=== PATIENT | female | born 1990 | race Caucasian/White ===

== ENCOUNTER → 2017-11-02 17:49 | Observation (INO) ==
[2017-11-02 16:43] LABS: Bilirubin,Urine Negative (Negative); Blood,Urine Negative (Negative); Clarity,Urine Cloudy (Clear); Color,Urine Yellow (Yellow); Glucose,Urine (UA) Normal (Normal); Ketones,Urine Negative (Negative); Leukocyte Esterase,Urine Negative (Negative); Nitrite,Urine Negative (Negative); Protein,Urine Negative (Neg-Trace); Specific Gravity,Urine 1.015 (1.010-1.025); Urobilinogen,Urine Normal (Normal)
[2017-11-02 16:44] LABS: Hyaline Casts,Urine None Seen per lpf (None-Few); RBC,Urine 0-3 per hpf (0-3); Squamous Epithelial Cell,Urine Many per lpf (None-Few)
[2017-11-02 17:01] LABS: Bacteria,Urine Moderate per hpf (None-Few)
[2017-11-02 17:06] LABS: Amphetamine Screen,Urine Negative ng/mL (Cutoff=1000); Barbiturate Screen,Urine Negative ng/mL (Cutoff=200); Benzodiazepines Screen,Urine Negative ng/mL (Cutoff=200); Cannabinoid Screen,Urine Negative ng/mL (Cutoff = 50); Cocaine Screen,Urine Negative ng/mL (Cutoff= 300); Opiate Screen,Urine Negative ng/mL (Cutoff=300); Phencyclidine Screen,Urine Negative ng/mL (Cutoff=25)
--- NOTE | 2017-11-02 17:45 | OB/GYN Progress Note ---
Date of Encounter: 11/02/17 Time of Encounter: 17:36 - Assessment and Plan (1) 31 weeks gestation of Current Visit: Yes Status: Acute Continue PNC as scheduled labor precautions given Discharge home (2) Left sciatic nerve pain Current Visit: Yes Status: Acute Apply heat as needed for 20 minutes at a time Tennis ball maneuvers discussed. Subjective - Subjective Principal diagnosis: Sciatic nerve pain during Interval history: Ms. Greene is a 27-year-old at 31 weeks gestation who presents with c/o sudden onset left-sided pain in her gluteal area radiating to her groin. She also c/o feeling vaginal pressure and tightening. She endorses good fm and denies lof, vb. She states she sees Dr. Jean for PNC and has not had any complications this . Antepartum ROS: new complaints, movement normal, no loss of fluid, no vaginal bleeding, no contractions Objective - Vital Signs Vital Signs: Intake and Output 11/02/17 11/02/17 11/02/17 07:59 15:59 23:59 Other: Weight 69.4 kg Patient Weight 11/02/17 23:59 Weight 69.4 kg - Exam FHR: category 1 FHR comments: Baseline 130 Moderate variability Accelerations 15x15 No decelerations FHR Category I No toco activity Auscultation: bilateral: normal Abdomen: Present: normal appearance, rigidity, soft, gravid Uterus: Present: normal, firm - Labs Labs: Abnormal lab results Urine Clarity Cloudy (Clear) A 11/02/17 16:24 Urine Microscopic WBC 3-5 per hpf (0-3) H 11/02/17 16:24 Ur Squamous Epith Cells Many per lpf (None-Few) H 11/02/17 16:24 Urine Bacteria Moderate per hpf (None-Few) H 11/02/17 16:24
== END | disposition home or self-care (01) ==
LOC: 1NENULAB
PROVIDERS: ADMIT Advanced Practice Midwife; ATTEND Obstetrics & Gynecology

== ENCOUNTER 2017-12-27 06:00 | Inpatient (IN) ==
--- NOTE | 2017-12-26 15:30 | OB/GYN History & Physical ---
Date of Encounter: 12/25/17 Time of Encounter: 14:00 Assessment and Plan (1) 39 weeks gestation of Status: Acute (2) Elective induction of labor planned Status: Acute History of Present Illness Chief complaint: induction of labor HPI: Ms. Greene is a 27 year old female 5 para 20-2 scheduled for induction of labor at 40 weeks gestation. Patient is doing well. On presentation her cervix was 2 cm 70% effaced and -2 station. Patient has a history of rapid labors. She is feeling well. She complaints. Baby is very active. We discussed induction of labor. This patient does wish to proceed with induction. She is scheduled for Friday morning. Patient has allergies to amoxicillin. She is currently on vitamins, diclegis, Zofran. She has no chronic medical conditions. Surgical history includes a D&C, tonsillectomy, laparoscopy for ovarian cysts. A chest tube for pneumothorax. She has no history of abnormal Pap smears, STDs or pelvic infections. She has no history of abnormal breast findings. Socially she denies tobacco, alcohol, illicit drug use. Family history is significant for mother with pancreatic cancer. Obstetric history is significant for 2 term vaginal deliveries uncomplicated 2 early miscarriages. Past Med Surg Social Fam HX - Past Medical History Medical history: COPD, other Additional medical history: pneumothorax Psychiatric history: anxiety, depression, PTSD - Past Surgical History Surgical History: other Additional surgical history: t&a - Social History Smoking Status: Current every day smoker Smokeless Tobacco Status: No Alcohol use: none Drug use: none - Family History Mother Living Status: Hx Family Cancer: Yes (pancreatic) Obstetrical History - Pregnancies : 5 Para: 2 Term: 2 Ab's: 2 Livin Medications and Allergies Albuterol Sulfate [Albuterol Inhaler] 2 puff IH Q4HR PRN 11/02/17 [History] 3 Allergy/AdvReac Type Severity Reaction Status Date / Time No Known Allergies Allergy Verified 11/02/17 16:16 Exam - Constitutional Constitutional: well developed, well nourished, no acute distress - HEENT HEENT: PERRL - Neck Neck exam: normal inspection - Lungs Respiratory exam: CTAB - Cardiovascular Cardiovascular exam: RRR - Abdomen Abdomen: Present: bowel sounds normal, gravid, non tender - Extremities Extremities exam: radial pulses palpable and symmetrical - Vagina Vagina: Present: normal moisture - Cervix Dilation: 3 Effacement: 50 Station: -2 - Uterus Uterus exam: Present: normal size Results All other labs normal.
[2017-12-27] MEDS ORDERED: Naloxone 0.4 MG/ML INJ IVP PRN (06:15)
[2017-12-27] MEDS ORDERED: Metoclopramide 10 MG/2 ML VIAL IVP PRN (06:15)
[2017-12-27] MEDS ORDERED: Lidocaine 1% 20 ML MDV INFILT PRN (06:15)
[2017-12-27] MEDS ORDERED: *HR* Nalbuphine 10 MG/ML AMPUL IVP PRN (06:15)
[2017-12-27] MEDS ORDERED: Ondansetron 4 MG/2 ML VIAL IVP PRN (06:15)
[2017-12-27] MEDS ORDERED: Ringers Solution, Lactated 1,000 ML IVC SCH (06:15)
[2017-12-27] MEDS ORDERED: Oxytocin 20 units/ LR 1000 mL 20 UNIT/1,000 ML BAG IVC SCH ×2 (06:15→16:06)
[2017-12-27] MEDS ORDERED: Famotidine 20 MG/2 ML VIAL IVP PRN (06:15)
[2017-12-27 06:58] LABS: Basophils % 0.3 %; Eosinophils # 0.1 K/mcL (0.0-0.6); Eosinophils % 0.7 %; Hematocrit 30.8 % (35.3-44.9); Hemoglobin 10.2 g/dL (11.5-15.4); Immature Granulocytes % 0.4 % (0-4); Lymphocytes # 2.9 K/mcL (0.6-4.6); Lymphocytes % 29.3 %; Mean Corpuscular HGB Conc 33.1 g/dL (31.6-35.5); Mean Corpuscular Hemoglobin 30.6 pg (28.0-33.3); Mean Corpuscular Volume 92.5 fL (83.0-100.0); Monocytes # 0.8 K/mcL (0.0-1.3); Monocytes % 8.1 %; Neutrophils # 6.1 K/mcL (1.6-8.9); Platelet Count 233 K/mcL (140-400); Red Blood Count 3.33 M/mcL (3.82-4.97); Red Cell Distribution Width 12.9 % (11.5-14.5); Segmented Neutrophils % 61.2 %
[2017-12-27 07:18] LABS: Amphetamine Screen,Urine Negative ng/mL (Cutoff=1000); Barbiturate Screen,Urine Negative ng/mL (Cutoff=200)
[2017-12-27 07:20] LABS: Benzodiazepines Screen,Urine Negative ng/mL (Cutoff=300); Cannabinoid Screen,Urine Negative ng/mL (Cutoff = 50); Cocaine Screen,Urine Negative ng/mL (Cutoff= 300); Opiate Screen,Urine Negative ng/mL (Cutoff=300); Phencyclidine Screen,Urine Negative ng/mL (Cutoff=25)
--- NOTE | 2017-12-27 11:04 | History & Physical Report ---
Date of Encounter: 12/27/17 Time of Encounter: 11:02 24 Hour HP Update - Instructions Instructions: If the History and Physical is less than 30 days old and was completed prior to A.M. admission and or procedure and has NOT been updated on calendar day of procedure please complete this update prior to performing procedure. - Update Patient reports changes in Medical Condition: No Changes in examination, assessment, or condition: No Changes in Medication: No Preop tests/diagnostics Reviewed: Yes Consent for Planned Operative Procedure(s) Verified: Yes - Pre-Operative Checklist Preoperative Checklist Indicated: Yes Prophylactic Antibiotic Ordered: No Home Medications Include Beta Laron: No Beta Laron Taken Today (Day of Surgery): No Beta Laron Taken Yesterday (Day Prior to Surgery): No Is VTE Prophylaxis Indicated?: Yes - Attending Attestation Ramonita is a 27-year-old female scheduled for induction of labor. Patient presented today for induction. She is doing well. Pitocin was started. She has had no cervical change. Myers induction begun using 60 mL. Patient doing well. Reactive tracing category 1. Irregular contractions.
--- NOTE | 2017-12-27 13:01 | OB/GYN Progress Note ---
Date of Encounter: 12/27/17 Time of Encounter: 12:50 - Assessment and Plan (1) 39 weeks gestation of Current Visit: No Status: Acute (2) Elective induction of labor planned Current Visit: No Status: Acute AROM performed clear fluid returned. FHR 150-160 category 1. Irregular ctxs. Continue current management Subjective - Subjective Principal diagnosis: Labor eval Interval history: 27 yo female at 39 weeks, in labor, AROM performed, SVE 680/-1 clear fluid Antepartum ROS: new complaints Objective - Vital Signs Vital Signs: Vital Signs Temp Pulse Resp BP 12/27/17 06:29 97.8 F 80 16 115/55 Intake and Output 12/26/17 12/27/17 12/27/17 23:59 07:59 15:59 Other: Weight 77.7 kg Patient Weight 12/27/17 23:59 Weight 77.7 kg - Exam FHR: category 1 Abdomen: Present: normal appearance Uterus: Present: normal - Labs Labs: Abnormal lab results RBC 3.33 M/mcL (3.82-4.97) L 12/27/17 06:46 Hgb 10.2 g/dL (11.5-15.4) L 12/27/17 06:46 Hct 30.8 % (35.3-44.9) L 12/27/17 06:46
--- NOTE | 2017-12-27 14:11 | Anesthesia Evaluation PreOp ---
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 Any Significant HX Other Medical History: Denies Any Significant HX Anesthesia History: No Prior Anesthetic Complications, Past Anesthesia : Yes ( 39 weeks) Alcohol Use: none Drug use: none Medications and Allergies Cephalexin 500 mg PO Q8H 12/27/17 [History] Esomeprazole Magnesium 20 mg PO DAILY 12/27/17 [History] Valacyclovir HCl 500 mg PO BID PRN 12/27/17 [History] 3 Allergy/AdvReac Type Severity Reaction Status Date / Time No Known Allergies Allergy Verified 11/02/17 16:16 - Meds/Allergy Pre-op Review Medications Reviewed: Yes Allergies Reviewed: Yes Beta Blockers on Current Med List: No Anesthesia Results - Labs 12/27/17 06:46 Anesthesia Exam O2 Sat Height 1.7 m Height 1.7 m Weight 77.7 kg Weight 77.7 kg Vital Signs Temp Pulse Resp BP 97.8 F 80 16 115/55 12/27/17 06:29 12/27/17 06:29 12/27/17 06:29 12/27/17 06:29 Height: 67 Weight: 77 - HEENT Pupil (Motor): Pupils equal Mallampati: II Teeth: Normal Oral Opening: Greater than 3 - TIMBER SURVEYOR LOC: Oriented TIMBER SURVEYOR Motor: Normal RUE, Normal LUE, Normal RLE, Normal LLE, Normal Face TIMBER SURVEYOR Sensory: Normal: RUE, LUE, RLE, LLE, Face - Cardiac Rhythm: Regular Murmur: None JVD: No Carotid Bruit: No - Pulmonary Breath Sounds: bilateral Clear Respiratory Effort: Symmetrical Anesthesia Assess/Plan ASA Score: 2 Modified B[place]mer Scale for Level of Consciousness: Cooperative, oriented, and tranquil Anesthetic Plan: Regional Monitoring Plan: Standard Monitors
[2017-12-27] MEDS ORDERED: Epidural Premix (fent/bupiv) 110 ML EP ONE (14:28)
[2017-12-27] MEDS ORDERED: Lidocaine -MPF 1% 5 ML AMPUL ONE (14:30)
[2017-12-27] MEDS ORDERED: *HR* Ropivacaine/PF 0.2% 20 ML VIAL ONE (14:30)
[2017-12-27] MEDS ORDERED: Water for inj. (sterile) 10 ML IV ONE (14:30)
[2017-12-27] MEDS ORDERED: *HR* FentaNYL (PF) 100 MCG/2 ML VIAL ONE (14:31)
--- NOTE | 2017-12-27 15:25 | OB/GYN Procedure Note ---
Delivery - Delivery Date: 12/27/17 Provider: Pawan Regan Intrapartum events: none Delivery induction: oxytocin, sun Delivery augmentation: rupture of membranes Delivery monitor: external FHT, external uterine Anesthesia: epidural Quantitated Blood Loss: 300 - Infant (s) Infant A Delivery Date: 12/27/17 Delivery Time: 15:15 Presentation: vertex Position: OA Route of delivery: Gender: Male Viability: Viable Pounds: 7 Ounces: 12 Weight Gram: 3.52 kg at 1 minute: 9 at 5 mins: 9 Shoulder Dystocia: not encountered Specimens collected: cord blood Placenta: spontaneous - Repair Episiotomy: none Laceration Description: None - Complications Delivery complications: none - Disposition Mom disposition: stable in LDR disposition: stable in LDR - Comments Comments: Pt progressed rapidly to complete and pushing and had a spontaneous vaginal delivery of a male infant over an intact perineum. 's head was in the perineum easily. The rest of the infant was delivered with 1 push. Infant cried immediately upon delivery cord is clamped cut after 60 seconds. Cord blood was obtained. Placenta was delivered spontaneously intact. There are no cervical ,vaginal, periurethral or perineal lacerations noted. Patient delivered a male infant weight is pending his mother skin the skin Apgars are 9 at 1 minute and 9 at 5 minutes assessment blood loss is 300 ml.
[2017-12-27] MEDS ORDERED: valACYclovir 500 MG TABLET PO PRN (16:06)
[2017-12-27] MEDS ORDERED: Measles/Mumps/Rubella Vacc 0.5 ML VIAL SQ PRN (16:06)
[2017-12-27] MEDS: Acetaminophen 325 MG TABLET PO PRN (22:20)
[2017-12-28] MEDS: Ibuprofen 600 MG TABLET PO PRN ×4 (02:55→21:07)
[2017-12-28 06:53] LABS: Basophils % 0.3 %; Eosinophils # 0.1 K/mcL (0.0-0.6); Eosinophils % 0.9 %; Hematocrit 25.8 % (35.3-44.9); Immature Granulocytes % 0.3 % (0-4); Lymphocytes % 33.1 %; Mean Corpuscular HGB Conc 33.3 g/dL (31.6-35.5); Mean Corpuscular Hemoglobin 30.6 pg (28.0-33.3); Mean Corpuscular Volume 91.8 fL (83.0-100.0); Mean Platelet Volume 11.3 fL (9.4-12.4); Monocytes # 0.6 K/mcL (0.0-1.3); Monocytes % 6.7 %; Neutrophils # 5.2 K/mcL (1.6-8.9); Platelet Count 220 K/mcL (140-400); Red Blood Count 2.81 M/mcL (3.82-4.97); Red Cell Distribution Width 12.9 % (11.5-14.5); Segmented Neutrophils % 58.7 %
[2017-12-28 06:58] LABS: Hemoglobin 8.6 g/dL (11.5-15.4)
[2017-12-28] MEDS: Prenatal Vit/FA 1 EACH TABLET PO SCH (09:13)
--- NOTE | 2017-12-28 12:24 | OB/GYN Progress Note ---
Date of Encounter: 12/28/17 Time of Encounter: 12:23 - Assessment and Plan (1) 39 weeks gestation of Current Visit: No Status: Acute (2) Elective induction of labor planned Current Visit: No Status: Acute AROM performed clear fluid returned. FHR 150-160 category 1. Irregular ctxs. Continue current management Subjective - Subjective Principal diagnosis: PPD#1 Interval history: Ramonita is a 27-year-old female who presented for induction of labor. Patient had a rapid spontaneous vaginal delivery which was uncomplicated. Baby and mother both doing well day #1. No complaint of any kind Patient reports: appetite normal, voiding normally, pain well controlled, ambulating normally : doing well Objective - Latest Vital Signs Latest vital signs: Vital Signs Temp Pulse Resp BP Pulse Ox 12/28/17 09:46 16 12/28/17 08:10 97.8 F 84 18 92/57 98 12/28/17 02:30 97.9 F 64 18 111/62 98 12/27/17 19:45 98.4 F 83 20 115/68 98 12/27/17 19:00 98.7 F 84 16 119/65 99 12/27/17 18:50 98.7 F 84 16 119/65 99 12/27/17 17:45 16 12/27/17 17:30 98.0 F 77 16 118/75 100 Intake and Output 12/27/17 12/28/17 12/28/17 23:59 07:59 15:59 Intake Total 300 / 300 400 / 400 Output Total 1050 / 1050 650 / 650 600 / 600 Balance -750 / -750 -250 / -250 -600 / -600 Intake: Oral 300 / 300 400 / 400 Output: Urine 1050 / 1050 650 / 650 600 / 600 Other: Weight 72.3 kg 73.618 kg Patient Weight 12/28/17 23:59 Weight 73.618 kg - Exam Lungs: bilateral: normal Chest: Normal S1, Normal S2 Extremities: Present: normal Abdomen: Present: normal appearance, soft Uterus: Present: normal, firm Uterus Position: 3 Fingers Below Umbilicus - Labs Labs: Laboratory Results - last 24 hr 12/28/17 06:30 WBC 8.9 RBC 2.81 L Hgb 8.6 L D Hct 25.8 L MCV 91.8 MCH 30.6 MCHC 33.3 RDW 12.9 Plt Count 220 MPV 11.3 Immature Gran % 0.3 Seg Neutrophils % 58.7 Lymphocytes % 33.1 Monocytes % 6.7 Eosinophils % 0.9 Basophils % 0.3 Neutrophils # 5.2 Lymphocytes # 3.0 Monocytes # 0.6 Eosinophils # 0.1 Basophils # 0.0
[2017-12-28] MEDS: Acetaminophen 325 MG TABLET PO PRN ×2 (16:08→23:08)
[2017-12-29] MEDS: Ibuprofen 600 MG TABLET PO PRN (05:22)
[2017-12-29] MEDS: Acetaminophen 325 MG TABLET PO PRN (06:43)
--- NOTE | 2017-12-29 07:03 | OB/GYN Progress Note ---
Date of Encounter: 12/29/17 Time of Encounter: 07:02 - Assessment and Plan (1) 39 weeks gestation of Current Visit: No Status: Acute (2) Elective induction of labor planned Current Visit: No Status: Acute AROM performed clear fluid returned. FHR 150-160 category 1. Irregular ctxs. Continue current management Subjective - Subjective Principal diagnosis: PPD#2 Interval history: 27-year-old female status post vaginal delivery uncomplicated. Mother and baby both doing well. No problems . Patient feeling great having some tenderness in her back from her epidural looks wonderful. Minimal lochia. Baby is feeding well. No problems whatsoever. Patient reports: appetite normal, voiding normally, pain well controlled, ambulating normally : doing well Objective - Latest Vital Signs Latest vital signs: Vital Signs Temp Pulse Resp BP Pulse Ox 12/28/17 19:45 98.0 F 92 16 113/60 98 12/28/17 09:46 16 12/28/17 08:10 97.8 F 84 18 92/57 98 Intake and Output 12/28/17 12/28/17 12/29/17 15:59 23:59 07:59 Intake Total 300 / 300 Output Total 1500 / 1500 2350 / 2350 Balance -1500 / -1500 -2049 / -2049 Intake: Oral 300 / 300 Output: Urine 1500 / 1500 2350 / 2350 Other: Meal Dinner Percent of Meal Consumed 100% # Voids 3 Weight 72.756 kg Patient Weight 12/29/17 23:59 Weight 72.756 kg - Exam Lungs: bilateral: normal Extremities: Present: normal Abdomen: Present: normal appearance, soft Uterus: Present: normal Uterus Position: 3 Fingers Below Umbilicus
--- NOTE | 2017-12-29 07:05 | Discharge Summary ---
Date of Encounter: 12/29/17 Time of Encounter: 07:05 - Discharge Diagnosis (1) 39 weeks gestation of Priority: Secondary Status: Acute (2) Elective induction of labor planned Priority: Secondary Status: Acute (3) (spontaneous vaginal delivery) Priority: Primary Status: Acute - Discharge Medications Home Medications: Cephalexin 500 mg PO Q8H 12/27/17 [History] Esomeprazole Magnesium 20 mg PO DAILY 12/27/17 [History] Valacyclovir HCl 500 mg PO BID PRN 12/27/17 [History] Allergies/Adverse Reactions: 3 Allergy/AdvReac Type Severity Reaction Status Date / Time No Known Allergies Allergy Verified 11/02/17 16:16 Data Procedures and tests throughout hospitalization: Laboratory Tests 12/27/17 12/27/17 12/28/17 06:44 06:46 06:30 WBC 9.9 8.9 RBC 3.33 L 2.81 L Hgb 10.2 L 8.6 L D Hct 30.8 L 25.8 L MCV 92.5 91.8 MCH 30.6 30.6 MCHC 33.1 33.3 RDW 12.9 12.9 Plt Count 233 220 MPV 11.0 11.3 Immature Gran % 0.4 0.3 Seg Neutrophils % 61.2 58.7 Lymphocytes % 29.3 33.1 Monocytes % 8.1 6.7 Eosinophils % 0.7 0.9 Basophils % 0.3 0.3 Neutrophils # 6.1 5.2 Lymphocytes # 2.9 3.0 Monocytes # 0.8 0.6 Eosinophils # 0.1 0.1 Basophils # 0.0 0.0 Urine Opiates Screen Negative Ur Barbiturates Screen Negative Ur Phencyclidine Scrn Negative Ur Amphetamines Screen Negative U Benzodiazepines Scrn Negative Urine Cocaine Screen Negative U Marijuana (THC) Screen Negative Ur Drug Screen Interp See Below Date of admission: 12/27/17 06:13 Consults: 12/27/17 16:06 Consult to Section Beamer [CONS] Routine Comment: Vaginal delivery, consult needed Discharging clinician: Pawan Regan - Patient Status Disposition: Home, Self-Care Condition: Good Functional capacity at discharge: independent ambulation Overall status at discharge: patient is back to baseline - Discharge Instructions - Diet and Activity Activity: increase activity as tolerated Diet: advance to your usual diet 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 Attestation: Total time spent providing and/or coordinating discharge services: Exam - Constitutional Vitals: Temp Pulse Resp BP Pulse Ox 98.0 F 92 16 113/60 98 12/28/17 19:45 12/28/17 19:45 12/28/17 19:45 12/28/17 19:45 12/28/17 19:45 General appearance IM: A&O X 3 - Respiratory Respiratory exam: Present: CTAB - Cardiovascular Cardiovascular exam IM: Present: RRR - GI/Abdominal GI/Abdominal exam IM: normal bowel sounds - Uterine Tone: Firm Uterus Position: 3 Fingers Below Umbilicus - Extremities Exam Extremities exam IM: Present: full ROM, normal inspection - VTE Reasons for not Prescribing Prophylaxis: Treatment not Indicated - Low risk for VTE
[2017-12-29] MEDS: Prenatal Vit/FA 1 EACH TABLET PO SCH (08:21)
[2017-12-29 10:15] VITALS: BP 115/60
== END 2017-12-29 10:02 | disposition home or self-care (01) | DRG 775 ==
LOC: 1NENULAB 06:13 → 1NENUOBS 16:00
PROVIDERS: ADMIT Obstetrics & Gynecology; ATTEND Obstetrics & Gynecology

== ENCOUNTER → 2021-05-29 12:29 | Observation (INO) ==
[~2021-05-29 12:29] MED LIST: EPHEDrine 50 MG/ML VIAL IVP PRN; Epidural Premix (fent/bupiv) 110 ML EP SCH
== END | disposition home or self-care (01) ==
LOC: 1NENULAB
PROVIDERS: ADMIT Registered Nurse; ATTEND Registered Nurse

== ENCOUNTER → 2021-06-02 21:14 | Observation (INO) ==
[2021-06-02 20:10] LABS: Amorphous Sediment,Urine Few per hpf (None-Few); Bacteria,Urine Few per hpf (None-Few); Bilirubin,Urine Negative (Negative); Blood,Urine Small (Negative); Clarity,Urine Turbid (Clear); Color,Urine Yellow (Yellow); Glucose,Urine (UA) Normal (Normal); Ketones,Urine Negative (Negative); Leukocyte Esterase,Urine Moderate (Negative); Mucus,Urine Few per lpf (None-Few); Nitrite,Urine Negative (Negative); PH,Urine 6.5 pH Units (5.0-8.0); Protein,Urine 30 mg/dL (Neg-Trace); Squamous Epithelial Cell,Urine Many per hpf (None-Few); Urobilinogen,Urine Normal (Normal); WBC,Urine 50-100 per hpf (0-3)
== END | disposition home or self-care (01) ==
LOC: 1NENULAB
PROVIDERS: ADMIT Obstetrics & Gynecology; ATTEND Obstetrics & Gynecology

== ENCOUNTER 2021-06-15 10:00 | Inpatient (IN) ==
[2021-06-15] MEDS ORDERED: Metoclopramide 10 MG/2 ML VIAL IVP PRN (14:38)
[2021-06-15] MEDS ORDERED: Famotidine 20 MG/2 ML VIAL IVP PRN (14:38)
[2021-06-15] MEDS ORDERED: Naloxone 0.4 MG/ML INJ IVP PRN (14:38)
[2021-06-15] MEDS ORDERED: Ringers Solution, Lactated 1,000 ML IVC SCH (14:45)
[2021-06-15] MEDS ORDERED: Oxytocin 20 units/ LR 1000 mL 20 UNIT/1,000 ML BAG IVC SCH (14:45)
[2021-06-15] MEDS ORDERED: cephALEXin 500 MG CAPSULE PO SCH (15:00)
[2021-06-15] MEDS ORDERED: Penicillin G Potassium 5,000,000 UNIT in 0.9 % Sodium Chloride Mini Bag 100 ML IVPB ONE (15:21)
[2021-06-15] MEDS ORDERED: Penicillin G Potassium 2,500,000 UNIT/105 ML MLS IVPB SCH (15:30)
[2021-06-15 15:58] LABS: Basophils % 0.3 %; Eosinophils # 0.1 K/mcL (0.0-0.6); Eosinophils % 0.9 %; Hematocrit 31.9 % (35.3-44.9); Hemoglobin 10.6 g/dL (11.5-15.4); Immature Granulocytes % 0.6 % (0-4); Lymphocytes % 28.8 %; Mean Corpuscular HGB Conc 33.2 g/dL (31.6-35.5); Mean Corpuscular Hemoglobin 32.8 pg (28.0-33.3); Mean Corpuscular Volume 98.8 fL (83.0-100.0); Mean Platelet Volume 11.3 fL (9.4-12.4); Monocytes # 0.7 K/mcL (0.0-1.3); Monocytes % 6.6 %; Neutrophils # 6.5 K/mcL (1.6-8.9); Platelet Count 218 K/mcL (140-400); Red Blood Count 3.23 M/mcL (3.82-4.97); Red Cell Distribution Width 14.2 % (11.5-14.5); Segmented Neutrophils % 62.8 %; White Blood Count 10.4 K/mcL (4.3-11.1)
[2021-06-15 16:05] LABS: Amphetamine Screen,Urine Negative ng/mL (Cutoff=1000); Barbiturate Screen,Urine Negative ng/mL (Cutoff=200); Benzodiazepines Screen,Urine Negative ng/mL (Cutoff=200); Cannabinoid Screen,Urine Negative ng/mL (Cutoff = 50); Cocaine Screen,Urine Negative ng/mL (Cutoff= 300); Opiate Screen,Urine Negative ng/mL (Cutoff=300); Phencyclidine Screen,Urine Negative ng/mL (Cutoff=25)
[2021-06-15 16:21] LABS: Platelet Estimate Normal (Normal); Reactive Lymphocytes Present (Not Present)
[2021-06-15 16:28] LABS: Influenza A PCR Negative (Negative); Influenza B PCR Negative (Negative); Resp. Syncytial Virus PCR Negative (Negative)
[2021-06-15 16:43] LABS: SARS-CoV-2 by PCR (In House) Negative (Negative)
[2021-06-15] MEDS ORDERED: *HR* FentaNYL (PF) 100 MCG/2 ML VIAL EP ONE (17:33)
[2021-06-15] MEDS ORDERED: EPHEDrine 50 MG/ML VIAL IVP PRN (17:33)
[2021-06-15] MEDS ORDERED: Ropivacaine/PF 0.2% 20 ML VIAL EP ONE (17:33)
[2021-06-15] MEDS ORDERED: Epidural Premix (fent/bupiv) 110 ML EP SCH (17:45)
[2021-06-15] MEDS ORDERED: Ropivacaine/PF 0.2% 20 ML VIAL ONE (23:25)
[2021-06-15] MEDS ORDERED: *HR* FentaNYL (PF) 100 MCG/2 ML VIAL ONE (23:25)
[2021-06-16] MEDS ORDERED: Measles/Mumps/Rubella Vacc 0.5 ML VIAL SQ PRN (04:44)
[2021-06-16] MEDS ORDERED: Rho Immune Globulin 1,500 UNIT SYRINGE IM PRN (04:44)
[2021-06-16] MEDS ORDERED: Oxytocin 20 units/ LR 1000 mL 20 UNIT/1,000 ML BAG IVC ONE (04:44)
[2021-06-16] MEDS ORDERED: Oxytocin 20 units/ LR 1000 mL 20 UNIT/1,000 ML BAG IVC SCH (04:44)
[2021-06-16] MEDS ORDERED: Lanolin 7 G OINT...G. TP PRN (04:44)
[2021-06-16] MEDS ORDERED: Ondansetron ODT 4 MG TAB.RAPDIS SL PRN (04:44)
[2021-06-16] MEDS: Benzocaine/Menthol 56 GM AEROSOL SPRAY TP PRN (05:21)
[2021-06-16] MEDS: Ibuprofen 600 MG TABLET PO SCH ×3 (05:21→19:37)
[2021-06-16] MEDS: Prenatal Vit/FA 1 EACH TABLET PO SCH (08:18)
[2021-06-16] MEDS: Acetaminophen 325 MG TABLET PO SCH ×2 (08:18→16:50)
[2021-06-16] MEDS ORDERED: valACYclovir 500 MG TABLET PO SCH ×2 (09:00)
[2021-06-16 16:34] VITALS: O2SAT 99
[2021-06-17] MEDS: Acetaminophen 325 MG TABLET PO SCH ×2 (00:40→08:20)
[2021-06-17] MEDS: Ibuprofen 600 MG TABLET PO SCH ×2 (05:11→10:48)
[2021-06-17 05:47] LABS: Basophils % 0.3 %; Eosinophils # 0.1 K/mcL (0.0-0.6); Eosinophils % 1.6 %; Hematocrit 32.2 % (35.3-44.9); Hemoglobin 10.6 g/dL (11.5-15.4); Immature Granulocytes % 0.7 % (0-4); Lymphocytes # 3.2 K/mcL (0.6-4.6); Lymphocytes % 36.6 %; Mean Corpuscular HGB Conc 32.9 g/dL (31.6-35.5); Mean Corpuscular Hemoglobin 32.3 pg (28.0-33.3); Mean Corpuscular Volume 98.2 fL (83.0-100.0); Mean Platelet Volume 11.1 fL (9.4-12.4); Monocytes % 8.6 %; Neutrophils # 4.5 K/mcL (1.6-8.9); Platelet Count 216 K/mcL (140-400); Red Blood Count 3.28 M/mcL (3.82-4.97); Red Cell Distribution Width 13.8 % (11.5-14.5); Segmented Neutrophils % 52.2 %; White Blood Count 8.7 K/mcL (4.3-11.1)
[2021-06-17 06:10] LABS: Monocytes # 0.8 K/mcL (0.0-1.3)
[2021-06-17 07:28] LABS: Platelet Estimate Normal (Normal)
[2021-06-17 07:29] LABS: Reactive Lymphocytes Present (Not Present)
[2021-06-17 07:39] VITALS: BP 99/56; PULSE 68; TEMP 97.9
[2021-06-17] MEDS: Prenatal Vit/FA 1 EACH TABLET PO SCH (08:20)
[2021-06-17] MEDS: Benzocaine/Menthol 56 GM AEROSOL SPRAY TP PRN (08:20)
== END 2021-06-17 12:23 | disposition home or self-care (01) | DRG 807 ==
LOC: 1NENULAB 13:55 → 1NENUOBS 06-16 04:44
PROVIDERS: ADMIT Student in an Organized Health Care Education/Training Program; ATTEND Student in an Organized Health Care Education/Training Program